=== PATIENT | female | born 1970 | race Caucasian/White ===

== ENCOUNTER 2025-07-06 19:01 | Emergency (ER) | payer OTHER, MEDICAID, SELFPAY ==
--- OUTSIDE RECORDS SUMMARY | 2024-04-24 02:12 | XMS_ITS | Continuity of Care Document ---
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 Related to Sialadenitis will do steroid shot for allergies today. Related to Seasonal allergies See #2 Related to Other chronic pain Tizanidine PRN and D iclofenac prescribed.Advised topical OTC diclofenac gel.Signed for records upon intake.Discussed PM referral. Declined at this time.Referral submitted to orthopedic surgery per pt. request. [facility]vised [facility].Advised may go to orthopedic in [place] for worsening pain.RTC in 6 months and PRN concerns. Related to Chronic left shoulder pain Referrals sent. Cont act clinic if not called within two weeks to schedule an appointment call clinic to inquire about delay. Related to Bilateral tinnitus Assessments Type Assessment Date No Information Patient Care Teams Name Effective Dates (start - stop) Status Members No Information
[2025-07-06 19:08] VITALS: BP 127/97; PULSE 93; RESP 16; TEMP 36.7; O2SAT 95; BMI 35.4
--- OUTSIDE RECORDS SUMMARY | 2025-07-06 19:22 | XMS_ITS | Clinical Summary ---
Author Organization [facility] Address [address] [place] [address] Care Team Providers Care Singing Telegram Performer Name Role Phone Jay Partida MD Primary Care Provider [phone] Allergies Active Allergy Reactions Criticality Noted Date Comments Cat Dander Itching Low 12/05/2020 Itchy/watery eyes and sneezing. Dog Dander Itching Low 12/05/2020 Itchy/watery eyes and sneezing. Gabapentin Shortness of Breath/Wheezing High 12/10/2022 Running into barraza when waking up at night. Nsaids (Non-Steroidal Anti-Inflammatory Drug) Nausea and Vomiting High 06/20/2024 Other Reaction(s): gastric Pregabalin Hallucination Low 07/11/2022 Quetiapine Itching Low 12/10/2022 Medications LORazepam (ATIVAN) 1 mg tablet Take 1 mg by mouth every 6 hours as needed for Anxiety. Active traZODone (DESYREL) 150 mg tablet Take 150 mg by mouth daily at bedtime. Active lisinopriL (PRINIVIL) 10 mg tablet Take 10 mg by mouth daily. for blood pressure Active cholecalciferol , vitamin D3, 5,000 unit Take 1 Tablet by mouth every other day. Active lidocaine (LIDODERM) 5 % Adhesive Patch, Medicated USE 1 PATCH EXTERNALLY ONCE DAILY (WEAR FOR UP TO 12 HOURS) Active ondansetron (ZOFRAN) 4 mg Tablet Take 4 mg by mouth. 2 Active valsartan (DIOVAN) 40 mg tablet Take 40 mg by mouth daily. 2 Active phentermine (ADIPEX P) 37.5 mg tablet Take by mouth every 24 hours. 4 Active cyclobenzaprine (FLEXERIL) 10 mg tablet Take 10 mg by mouth 3 times daily as needed. 5 Active phenazopyridine 100 mg tablet Take 100 mg by mouth every 8 hours as needed for Pain. 5 Active sulfamethoxazol e-trimethoprim (BACTRIM DS) 800-160 mg tablet Take 1 Tablet by mouth 2 times daily. 5 Active omeprazole (PriLOSEC) 40 mg Capsule, Delayed Release(E.C.) Take 1 Capsule (40 mg) by mouth daily. 30 Capsule 3 5 Active Active Problems Problem Noted Date Diagnosed Date Degeneration of lumbar intervertebral disc 01/12 Nausea 01/12/2025 Primary osteoarthritis of left shoulder 01/13/20 25 Sore throat 01/12/2025 Weight gain 01/12/2025 Foraminal stenosis of lumbar region 02/14/2024 Lumbar disc herniation 02/14/2024 Iron deficiency anemia 07/15/2023 Callus of foot 12/10/2022 Dry skin dermatitis 12/10/2022 Hypertriglyceridemia 11/20/2022 Left elbow pain 04/24/2022 Atypical chest pain 05/05/2021 Morbid obesity 05/05/2021 Hypertensive urgency 05/05/2021 Fibromyalgia 05/05/2021 Non-smoker 05/05/2021 Anxiety state 05/05/2021 B12 deficiency 01/15/2021 Vitamin D deficiency 01/15/2021 BMI 40.0-44.9, adult 12/05/2020 Overview (01/12/2025): Last Assessment & Plan: Pt is s/p Casi-en-y gastric bypass (2002). Prior to that she had followed w/ Nutrition/Weight Management. She has been following / [facility] and was been encouraged to reach out to [facility] Counseling. He notes that she is walking regularly and has modified her diet, which I encouraged. She is trying to drink plenty of water. She had been on Qsymia in the past and noted that it helped he to lose 70lb. This was after her gastric bypass and gaining weight following a . She denies a h/o kidney stones and did not feel the medication negatively impacted her mood. Pt is aware that I have reached out to Medical Weight Management to discuss her specific case and whether they feel this medication is appropriate. I will reach out to her once I hear back. She is requesting this medication d/t it being effective in the past and financially feasible. Essential hypertension 12/05/2020 Overview (01/12/2025): Last Assessment & Plan: Pt notes that she just took her BP regimen. She has been monitoring her BP at home, and her BP's have been very well controlled, most recently 108/78. She is walking more and trying to watch her diet, which I encouraged. Pt to continue to limit dietary sodium intake and avoid use of NSAID's. Continue Norvasc 10mg QD and Valsartan 40mg QD dosing. Pt to obtain previously ordered fasting lab work at her soonest convenience. H/O gastric bypass 12/05/2020 Overview (01/12/2025): S/p Casi-en-y 2002 History of goiter 12/05/2020 Overview (01/12/2025): Last Assessment & Plan: Thyroid lab work wnl. Given swallowing issues, repeat US ordered. Requested records do not appear to have been received. I will re-request these. Pt is s/p partial resection (2003). Repeat thyroid studies and free T4/T3 ordered for prior to next appt. History of iron deficiency anemia 12/05/2020 Insomnia 12/05/2020 Overview (01/12/2025): Last Assessment & Plan: Pt notes that the Trazodone 100mg QHS dose is working well for sleep. She is tolerating this well. Her mood has been good. Continue current regimen. 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 09/27/2019 Resolved Problems Problem Noted Date Diagnosed Date Resolved Date Acute midline low back pain without sciatica 02/15/2024 Weakness of both lower extremities 02/14/2024 02/15/2024 FH: CAD (coronary artery disease) 05/05/2021 01/12/2025 Encounters Date Type Department Care Team Description 06/12/2025 External Device Data STL ABSTRACTION Provider, Abstract 06/06/2025 External Device Data STL ABSTRACTION Provider, Abstract 06/05/2025 External Device Data STL ABSTRACTION Provider, Abstract 05/04/2025 Telephone [facility] [address] [place] [address] Joselito Mendoza MD Information 04/17/2025 External Device Data [facility] ABSTRACTION Provider, Abstract 04/10/2025 External Device Data [facility] ABSTRACTION Provider, Abstract 04/10/2025 External Device Data STL ABSTRACTION Provider, Abstract 04/10/2025 External Device Data STL ABSTRACTION Provider, Abstract from Last 3 Months Family History Medical History Relation Name Comments Breast Cancer Neg Hx Colon Cancer Neg Hx Social History Tobacco Use Types Packs/Day Years Used Date Smoking Tobacco: Never Smokeless Tobacco: Never Tobacco Cessation:Counseling Given: Not Answered Alcohol Use Standard Drinks/Week Comments Yes 0 (1 standard drink = 0.6 oz pur e alcohol) about once a month Feeling Safe Answer Date Recorded Are you in a relationship wi th someone who hurts you emotionally and/or physically? No 03/15/2025 Food Insecurity Answer Date Recorded Social/Environmental Concerns No concerns Transportation Needs Answer Date Record ed Social/Environmental Concerns No concerns Housing Stability Answer Date Recorded Social/Environmental Concerns No concerns Utility Needs Answer Date Recorded Social/Environmental Concerns No concerns Comments No Sex and Gender Information Value Date Recorded Sex Assigned at Female 05/04/2024 2:13 PM CDT Legal Sex Female 9:07 AM CDT Gender Identity Female 05/04/2024 2:13 PM CDT Sexual Orientation Not on file Last Filed Vital Signs Vital Sign Reading Time Taken Comments Blood Pressure 158/97 03/15/2025 4:00 PM CDT Pulse 78 09/19/2024 12:19 PM BROADBAND TECHNICIAN Temperature 36.3 C (97.4 F) 03/15/2025 4:00 PM CDT Respiratory Rate 21 03/15/2025 4:00 PM CDT Oxygen Saturation 99% 03/15/2025 4:00 PM CDT Inhaled Oxygen Concentration - - Weight 92.1 kg (203 lb) 03/15/2025 4:00 PM CDT Height 160 cm (5' 3 ) 03/15/2025 4:00 PM CDT Body Mass Index 35.96 03/15/2025 4:00 PM CDT Plan of Treatment Upcoming Encounters Date Type Department Care Team (Late st Contact Info) Description 09/12/2025 10:40 AM BROADBAND TECHNICIAN Office Visit [facility] [address] [place] [id number] Joselito Mendoza MD [address] [place] [address] Health Maintenance Due Date Last Done Comments HEPATITIS B VACCINES (1 of 3 - + 3-dose series) 1989 HPV/Cotest (21-29) 1991 CERVICAL CANCER SCREENING 2000 HPV/Cotest (30-65) 2000 PAP SMEAR 2000 COLORECTAL SCREENING 2015 Colorectal Cancer Screening 2015 FIT-DNA Q 3 years 2015 FIT/FOBT Q 1 year 2015 Flex Sig/CT Colonography Q 5 years 2015 ZOSTER VACCINE (1 of 2) 2020 DTAP/TDAP/TD VACCINES (2 - T d or Tdap) 02/09/2024 02/08/2014 Pre-Diabetes and Diabetes Screening 05/05/202405/05 BREAST CANCER SCREENING 01/12/2025 01/13/20 24, 11/26/2022, 11/26/2022 INFLUENZA VACCINE (#1) 2025 COVID-19 Vaccine ( season) 2025 Procedures Procedure Name Priority Date/Time Associated Diagnosis Comments MAMMO 3D SENDY SCREEN BILAT W OR WO CAD Routine 01/13/2024 3:03 PM CDT Encounter for screening mammogram for malignant neoplasm of breast HEMOGLOBIN A1C Stat 05/05/2021 12:16 AM CDT from Last 3 Months or Most Recently Relevant to Health Maintenance Results * MAMMO 3D SENDY SCREEN BILAT W OR WO CAD (01/13/2024 3:03 PM CDT) Anatomical Region Laterality Modality Breast Bilateral Mammography Impressions 01/25/2024 11:45 AM CDT : No mammographic evidence of malignancy. BI-RADS ASSESSMENT: 1 - Negative RECOMMENDATION: Routine annual screening mammography. Narrative 01/25/2024 11:45 AM CDT EXAM: MAMMO SCRN BILAT 3D SENYD W OR WO CAD INDICATION: Screening COMPARISON: No comparisons were made when reading this study. BREAST COMPOSITION: The breasts are almost entirely fatty. FINDINGS: RIGHT BREAST: There are no suspicious masses, calcifications, or areas of architectural distortion. LEFT BREAST: There are no suspicious masses, calcifications, or areas of architectural distortion. Debi CRAWLEY MAMMO ORDERABLES Final Resu lt * HEMOGLOBIN A1C (05/05/2021 12:16 AM CDT) HEMOGLOBIN A1C 5.6 <=5.6 % 05/06/2021 10:31 AM CDT [facility] X-1 [facility] EST. AVG GLUCOSE, A1C 114 mg/dL 05/06/2021 10:31 AM CDT [facility] Blood Venipuncture / Unknown 05/05/2021 12:16 AM CDT 05/05/2021 12:22 AM CDT Narrative [facility] LABORATORY [facility] - 05/06/2021 10:31 AM CDT HGB A1C INTERPRETATION NORMAL: <5.7% PRE-DIABETES: 5.7 - 6.4% DIABETES: 6.5% OR GREATER Tim Rowe MD CHEMISTRY ORDERABLES Final R esult [facility] [address] [place] [address] from Last 3 Months or Most Recently Relevant to Health Maintenance Insurance RX INFOCROSSING Medicaid MEDICAID [facility] DUAL COMPLETE HMO DSNP [facility] [address] Advance Directives For more information, please contact: [phone] * Full Code (Latest Code Status on File) Date Activated Date Inactivated Comments 02/14/2024 9:48 PM 02/15/2024 2:39 PM * Full Code Date Activated Date Inactivated Comments 05/05/2021 6:28 AM 05/05/2021 9:49 AM Care Teams Singing Telegram Performer Relationship Specialty Start Date End Date Jay Partida MD PCP - General Family Practice 06/09/21
[2025-07-06] MEDS: oxyCODONE-APAP 5-325 mg Tablet 1 TAB PO (20:11)
[2025-07-06] MEDS: ondansetron hcl ODT 4 mg Tab PO (21:00)
--- NOTE | 2025-07-06 22:49 | ED_ITS ---
HPI - Extremity Problem General: Chief complaint: Extremity Problem,Nontraumatic Stated complaint: Was given plasma, arms started swelling Time Seen by Provider: 07/06/25 19:49 History of Present Illness: 54 yo F presents with left upper arm and axillary pain and swelling that began after a plasma-related procedure earlier today (unclear if donating vs receiving). Pt reports significant tenderness extending toward the left axilla and notes pain on the left side of the neck. Bedside discussion focused on possible vascular injury vs venous issues at antecubital sites; pt was stuck in both ACs. Pt is visibly uncomfortable and reports nausea after receiving oxycodone earlier, consistent with prior experiences of severe nausea/vomiting with similar medications and after anesthesia. Pt agrees to antiemetic and injectable analgesia. No other systemic Sx discussed. Related Data Allergies Allergy/AdvReac Type Severity Reaction Status Date / Time No Known Allergies Allergy Verified 07/06/25 19:15 Physical Exam Narrative: EXAM NARRATIVE: Gen: Appears uncomfortable due to pain. Extremities: Left upper arm and axilla very tender to palpation; no visible hematoma reported in discussion. MSK: Focal tenderness along left upper arm into axilla. Const: COMMON NORMALS: patient oriented x3 and alert HENMT: COMMON NORMALS: normocephalic and atraumatic HEAD & SCALP: normocephalic and atraumatic Eye: COMMON NORMALS: Equal, round and reactive pupils present, EOMs intact bilaterally and no scleral icterus PUPIL: Yes Equal, round and reactive pupils present Lymph: OTHER: tender left axilla Resp: COMMON NORMALS: normal respiratory effort and No retractions Cardio: COMMON NORMALS: regular rate, regular rhythm and No murmurs present (Cardio) RATE: regular rate RHYTHM: regular rhythm GI: COMMON NORMALS: Normal to inspection, nondistended, normoactive bowel sounds present, Soft to palpation and non-tender PALPATION: Yes Soft to pal pation Neuro: COMMON NORMALS: patient oriented x3 SENSORIUM/ORIENTATION: Yes alert Skin: COMMON NORMALS: no rashes or lesions noted GENERAL SKIN EXAM: no rashes or lesions noted Course Vital Signs: Vital signs: Vital Signs Temperature 98.1 F 07/06/25 19:08 Pulse Rate 93 07/06/25 19:08 Respiratory Rate 16 07/06/25 19:08 Blood Pressure 127/97 07/06/25 19:08 Pulse Oximetry 95 07/06/25 19:08 MDM - Extremity (Nontraumatic) Medical Decision Making 54 yo F with acute left upper arm and axillary pain/swelling after a plasma- related procedure, with associated left neck pain and marked tenderness. Reports nausea after oxycodone; prior similar intolerance. PE: focal LUE/axillary tenderness; left cervical tenderness with enlarged nodes on bedside assessment. Imaging Results: Bedside vascular ultrasound of LUE shows patent veins and artery, no DVT, no arterial extravasation, minimal surrounding fluid. Mildly enlarged axillary lymph nodes noted. Patient remained hemodynamically stable throughout ED course. Prior to donating plasma, she had no axillary tenderness or arm pain. I do not suspect cancerous etiology to the presumably positive lymph node in the left axilla. I favor the diagnosis of reactive inflammatory lymphadenitis. Bedside ultrasound shows normal vein and artery of both arms. Patient is reassured. She will be discharged in stable condition No radiology studies performed this visit Discharge Plan Discharge Patient Disposition: Home Clinical Impression: Bilateral arm pain Condition: Stable Discharge Orders: Discharge ED (Routine); Ordered 07/06/25 Ordered By: Jim Gillespie Patient Instructions: Patient Portal & Marc Instructions Activity Restrictions/Additional Instructions: Fortunately, ultrasound does not show evidence of blood clots or active extravasation or fluid surrounding the veins or arteries or muscles of the arms. I suspect that there is inflammation causing your lymph nodes to be inflamed causing your pain which should get better with time without need for any specific intervention. Please take Tylenol and ibuprofen. It is safe to use heating pads if you so desire Print Language: Paraguayan Coding Level of Care Code ED Real Time Trader for Mary Todd
== END 2025-07-06 21:40 | disposition home or self-care (01) ==
PROVIDERS: Emergency Provider Student in an Organized Health Care Education/Training Program
DX: M79.602 Pain in left arm (principal); M79.601 Pain in right arm
CPT/HCPCS: 96372; 99284; J1885; J9999; Q0162

== ENCOUNTER → 2025-07-19 09:39 | Outpatient (BNVA) | payer OTHER, MEDICAID, SELFPAY | PROVIDERS: Visit Provider Nurse Practitioner | DX: M19.072 Primary osteoarthritis, left ankle and foot (principal) | CPT/HCPCS: 73630 ==

== ENCOUNTER 2025-08-12 11:25 | Emergency (ER) | payer OTHER, MEDICAID, SELFPAY ==
--- OUTSIDE RECORDS SUMMARY | 2025-08-12 11:29 | XMS_ITS | Clinical Summary ---
Author Organization [facility] Address [address] [place] [address] Care Team Providers Care Film Painter Name Role Phone Jay Partida MD Primary Care Provider +1- [phone] Allergies Active Allergy Reactions Criticality Noted Date [...] Nutrition/Weight Management. She has been following / [facility]al [facility] and was been [...] Acute midline low back pain without sciatica 4 02/15/2024 Weakness of both lower extremities 02/14/2024 02/15/2024 FH: CAD (coronary artery disease) 05/05/2021 01/12/2025 Encounters Date Type Department Care Team Description 07/17/2025 External Device Data STL ABSTRACTION Provider, Abstract 06/12/2025 External Device Data STL ABSTRACTION Provider, [...] PM CDT Pulse 78 09/19/2024 12:19 PM SUPERVISOR MOLDING Temperature 36.3 C (97.4 F) 03/15/2025 4:00 [...] Care Team (Late st Contact Info) Description 09/17/2025 12:20 PM SUPERVISOR MOLDING Office Visit [facility] [address] [place] [address] Joselito Mendoza MD [address] [place] [address] Health Maintenance Due Date Last Done Comments HEPATITIS B VACCINES (1 of 3 - 19+ 3-dose series) 1989 HPV/Cotest (21-29) 1991 CERVICAL [...] 11/26/2022 INFLUENZA VACCINE (#1) 2025 COVID-19 Vaccine (2 - season) 2025 Procedures Procedure Name Priority Date/Time [...] AM CDT EXAM: MAMMO SCRN BILAT 3D SENDY W OR WO CAD INDICATION: Screening COMPARISON: [...] 5.6 <=5.6 % 05/06/2021 10:31 AM CDT [facility] [employer] [facility] EST. AVG GLUCOSE, A1C 114 mg/dL 05/06/2021 10:31 AM CDT [facility] Blood Venipuncture / Unknown 05/05/2021 12:16 AM CDT 05/05/2021 12:22 AM CDT Narrative [facility] LABORATORY [facility] - 05/06/2021 10:31 AM CDT HGB A1C INTERPRETATION NORMAL: <5.7% PRE-DIABETES: 5.7 - 6.4% DIABETES: 6.5% OR GREATER Tim Rowe MD CHEMISTRY ORDERABLES Final R esult [facility] [employer] [facility] [address] [place] [address] from Last 3 Months or Most Recently Relevant to Health Maintenance Insurance RX INFOCROSSING Medicaid MEDICAID [place] Advance Directives For more information, please contact: [phone] * Full Code (Latest Code Status on File) Date Activated Date Inactivated Comments 02/14/2024 9:48 PM 02/15/2024 2:39 PM * Full Code Date Activated Date Inactivated Comments 05/05/2021 6:28 AM 05/05/2021 9:49 AM Care Teams Film Painter Relationship Specialty Start Date End Date Jay Partida MD PCP - General Family Practice 06/09/21
[2025-08-12 11:31] VITALS: BP 120/86; PULSE 82; RESP 18; TEMP 36.6; O2SAT 100
[2025-08-12 11:53] LABS: Glucose Urine UA Negative (Normal); Nitrate Urine Negative (Negative); Specific Gravity, Urine 1.029 (1.005-1.030)
[2025-08-12 11:55] LABS: Add Urine Microscopic? YES
--- NOTE | 2025-08-12 11:56 | ED_ITS ---
HPI - Abdominal Pain 2 General: Chief Complaint: Abdominal Pain Stated Complaint: right side pain/lower back pain Time Seen by Provider: 08/12/25 11:47 Source: patient Mode of arrival: ambulatory Limitations: no limitations History of Present Illness: 54-year-old female states she has chroni c left kidney pain that comes and goes over the last 2 years. States over the last 2 days she may have a sharp pain in her left flank. States it is worse with palpation as well. Has had history of urinary tract infections in the past denies any vomiting denies any fever denies abdominal pain Related Data Home Medications ?Medication ?Instructions ?Recorded ?Confirmed lorazepam 2 mg tablet 2 mg PO DAILY PRN 07/19/25 1 trazodone 50 mg tablet 25 mg PO DAILY 07/19/2512/12 Previous Rx's ?Medication ?Instructions ?Recorded cephalexin 500 mg capsule 500 mg PO TID 7 days #21 cap s 08/12/25 naproxen 500 mg tablet (Naprosyn) 500 mg PO BID PRN pa in #20 tabs 08/12/25 Allergies Allergy/AdvReac Type Severity Reaction Status Date / Time No Known Allergies Allergy Verified 07/19/25 09:22 [facility] ED 2 PFSH: Social History Smoking and tobacco/nicotine status: never used tobacco/nicotine Physical Exam 2 Const: COMMON NORMALS: no acute distress, patient oriented x3 and healthy appearing HENMT: COMMON NORMALS: normocephalic and atraumatic HEAD & SCALP: n ormocephalic and atraumatic Neck/C-Spine: COMMON NORMALS: full ROM and supple Chest: COMMONS NORMALS: normal inspection of the chest Resp: COMMON NORMALS: normal respiratory effort, No retractions, No use of accessory muscles and clear to auscultation bilaterally AUSCULTATION: clear to auscultation bilaterally Cardio: COMMON NORMALS: regular rate, regular rhythm and No murmurs present (Cardio) RATE: regular rate RHYTHM: regular rhythm GI: COMMON NORMALS: Normal to inspection, nondistended, normoactive bowel sounds present, Soft to palpation, non-tender and no masses PALPATION: Yes Soft to palpation OTHER: Left flank tenderness Extremity: COMMON NORMALS: normal to inspection and full ROM Neuro: COMMON NORMALS: patient oriented x3, moves all extremities and no focal motor deficits Psych: COMMON NORMALS: mental status grossly normal, Normal thought process present and cooperative THOUGHT PROCESS: Normal thought process present Skin: COMMON NORMALS: no rashes or lesions noted and no wounds GENERAL SKIN EXAM: no rashes or lesions noted Course 2 Vital Signs: Vital signs: Vital Signs Temperature 97.9 F 08/12/25 11:31 Pulse Rate 82 08/12/25 11:31 Respiratory Rate 18 08/12/25 11:31 Blood Pressure 120/86 08/12/25 11:31 Pulse Oximetry 100 08/12/25 11:31 Oxygen Delivery Me thod Room Air 08/12/25 11:31 MDM - Abdominal Pain Medical Decision Making Patient presents today with left flank pain along with some dysuria. Urinalysis does show urinary tract infection. Blood work here is normal with normal white count along with normal kidney function she has no blood in her urine no signs of a kidney stone. Abdominal exam here is benign we will prescribe her Keflex for home along with Naprosyn vitals here are normal did go over these results with her she is follow-up with her PCP and return if worsening she understands agrees to plan. Medical Records I reviewed the patient's medical records. Lab Data I reviewed the patient's lab results. 08/12/25 11:52 08/12/25 11:52 Labs/Radiology: Laboratory Results WBC 5.90 10^3/uL (3.29-11.43) 08/12/25 11:52 RBC 4.74 10^6/uL (3.85-5.65) 08/12/25 11:52 Hgb 13.70 g/dL (11.27-16.99) 08/12/25 11:52 Hct 41.9 % (36-47) 08/12/25 11:52 MCV 88.4 fl (85-98) 08/12/25 11:52 MCH 28.9 pg (27-33) 08/12/25 11:52 MCHC 32.7 g/dL (30-55) 08/12/25 11:52 RDW 12.2 % (12.1-15.1) 08/12/25 11:52 Plt Count 190 10^3/cmm (157-399) 08/12/25 11:52 MPV 11.4 fL (7.4-10.4) H 08/12/25 11:52 Neut % (Auto) 55.7 % 08/12/25 11:52 Lymph % (Auto) 35.3 % 08/12/25 11:52 [place] % (Auto) 7.6 % 08/12/25 11:52 Eos % (Auto) 0.5 % 08/12/25 11:52 Baso % (Auto) 0.7 % 08/12/25 11:52 Neut # (Auto) 3.29 10^3/uL (1.8-7.7) 08/12/25 11:52 Lymph # (Auto) 2.1 10^3/uL (0.8-4.8) 08/12/25 11:52 [place] # (Auto) 0.5 10^3/uL (0.2-0.9) 08/12/25 11:52 Eos # (Auto) 0.0 10^3/uL (0.0-0.8) 08/12/25 11:52 Baso # (Auto) 0.0 10^3/uL (0.0-0.1) 08/12/25 11:52 Nucleated RBC % (auto) 0 % 08/12/25 11:52 Nucleated RBCs # 0.0 /100WBC 08/12/25 11:52 Sodium 139 mmol/L (136-145) 08/12/25 11:52 Potassium 3.4 mmol/L (3.5-5.1) L 08/12/25 11:52 Chloride 102 mmol/L (98-107) 08/12/25 11:52 Carbon Dioxide 25 mmol/L (22-29) 08/12/25 11:52 Anion Gap 15.4 (5-19) 08/12/25 11:52 BUN 7 mg/dL (6-20) 08/12/25 11:52 Creatinine 0.5 mg/dL (0.5-0.9) 08/12/25 11:52 GFR Calculation 128.6 mL/min (90-130) 08/12/25 11:52 Glucose 85 mg/dL (65-115) 08/12/25 11:52 Calculated Osmolality 285 mOsm/kg (285-295) 08/12/25 11:52 Calcium 9.1 mg/dL (8.5-10.5) 08/12/25 11:52 Total Bilirubin 0.4 mg/dL (0.15-1.2) 08/12/25 11:52 AST 15 U/L (0-32) 08/12/25 11:52 ALT 8 U/L (0-33) 08/12/25 11:52 Alkaline Phosphatase 76 U/L (35-105) 08/12/25 11:52 Total Protein 6.3 g/dL (6.6-8.7) L 08/12/25 11:52 Albumin 4.1 g/dL (3.5-5.2) 08/12/25 11:52 Globulin 2.2 g/dL (1.3-4.6) 08/12/25 11:52 Lipase 20 U/L (13-60) 08/12/25 11:52 Urine Color Dark yellow (Yellow) A 08/12/25 11:43 Urine Appearance Cloudy (CLEAR) A 08/12/25 11:43 Urine pH 5.5 (5-7) 08/12/25 11:43 Ur Specific [place] 1.029 (1.005-1.030) 08/12/25 11:43 Urine Protein 1+ (Negative) A 08/12/25 11:43 Urine Glucose (UA) Negative (Normal) 08/12/25 11:43 Urine Ketones Trace (Negative) 08/12/25 11:43 Urine Blood Negative (Negative) 08/12/25 11:43 Urine Nitrate Negative (Negative) 08/12/25 11:43 Urine Bilirubin 1+ (Negative) H 08/12/25 11:43 Urine Urobilinogen 1.0 mg/dL (Negative) 08/12/25 11:43 Ur Leukocyte Esterase 1+ (Negative) A 08/12/25 11:43 Urine RBC 0-2 /hpf (0-2) 08/12/25 11:43 Urine WBC 21-50 /hpf (0-5) H 08/12/25 11:43 Ur Squamous Epith Cells 6-10 /hpf (0-5) 08/12/25 11:43 Amorphous Sediment Not Reportable 08/12/25 11:43 Urine Bacteria Trace /hpf (NONE) 08/12/25 11:43 Hyaline Casts 0-4 /lpf H 08/12/25 11:43 No radiology studies performed this visit Discharge Plan Discharge Patient Disposition: Home Clinical Impression: Acute cystitis Condition: Stable Prescriptions: New cephalexin 500 mg capsule 500 mg PO TID 7 Days Qty: 21 0RF naproxen [Naprosyn] 500 mg tablet 500 mg PO BID PRN (Reason: pain) Qty: 20 0RF No Action trazodone 50 mg tablet 25 mg PO DAILY lorazepam 2 mg tablet 2 mg PO DAILY PRN Discharge Orders: Discharge ED (Routine); Ordered 08/12/25 Ordered By: Tania Grace Discharge Diet: Advance as tolerated Discharge Activity: Resume usual activity Patient Instructions: Urinary Tract Infection in Women (ED) Print Language: Estonian Coding Level of Care Code ED [employer] for [facility]
[2025-08-12] MEDS: HYDROcodone-acetaminophen 5-325 mg Tablet 1 TAB PO (11:57)
[2025-08-12 12:00] LABS: Hematocrit 41.9 % (36-47); Hemoglobin 13.70 g/dL (11.27-16.99); Mean Corpuscular HGB Conc 32.7 g/dL (30-55); Mean Corpuscular Hemoglobin 28.9 pg (27-33); Mean Corpuscular Volume 88.4 fl (85-98); Nucleated Red Blood Cells % 0 %; Platelet Count 190 10^3/cmm (157-399); Red Blood Count 4.74 10^6/uL (3.85-5.65); White Blood Count 5.90 10^3/uL (3.29-11.43)
[2025-08-12 12:22] LABS: Alanine Aminotransferase 8 U/L (0-33); Albumin Level 4.1 g/dL (3.5-5.2); Alkaline Phosphatase 76 U/L (35-105); Anion Gap 15.4 (5-19); Aspartate Amino Transferase 15 U/L (0-32); Blood Urea Nitrogen 7 mg/dL (6-20); Calcium 9.1 mg/dL (8.5-10.5); Carbon Dioxide 25 mmol/L (22-29); Chloride 102 mmol/L (98-107); Creatinine Clr Calc Pharmacy 131.2608; Globulin 2.2 g/dL (1.3-4.6); Glucose 85 mg/dL (65-115); Lipase 20 U/L (13-60); Osmolality Calculated 285 mOsm/kg (285-295); Potassium 3.4 mmol/L (3.5-5.1); Sodium 139 mmol/L (136-145); Total Protein 6.3 g/dL (6.6-8.7)
[2025-08-12] MEDS: cefTRIAXone 1,000 MG in water for injection-sterile 2.1 ML 2 MG IM (12:37)
== END 2025-08-12 12:37 | disposition home or self-care (01) ==
PROVIDERS: Emergency Provider Emergency Medicine
DX: N30.00 Acute cystitis without hematuria (principal)
CPT/HCPCS: 36415; 80053; 81001; 83690; 85025; 87086; 96372; 99284; J0696; J9999